=== PATIENT | male | born 1975 | race Caucasian/White ===

== ENCOUNTER 2017-07-16 00:40 | Emergency (ER) | payer BC ==
[~2017-07-16] VITALS: Ht 180.3 cm; Wt 81.6 kg
[~2017-07-16 00:40] MED LIST: CELEXA40 MG PO; DIVALPROEX SOD250 M1 PO; FETZIMA40 MG PO; KLONOPIN0.5 M1 PO; TRILEPTAL600 MG PO
[2017-07-16 02:04] LABS: HEMATOCRIT 50.2 % (38.0-50.0); MCH 29.9 PG (29.0-34.0); MCHC 33.5 G/DL (30.0-36.0); MCV 89.5 FL (86-99); MEAN PLAT.VOLUME 10.4 uM^3 (9.0-12.4); PLATELET COUNT 287 K/uL (156-360); RBC DIS.WIDTH-CV 13.1 % (11.8-14.6); RBC DIS.WIDTH-SD 42.8 % (39-53); RED BLOOD COUNT 5.61 M/uL (4.00-5.50); WHITE BLOOD COUNT 10.3 K/uL (4.1-10.2)
[2017-07-16 02:05] LABS: ADD MEDTOX COMMENT Y; AMPHETAMINE NEGATIVE (500 ng/mL); BARBITURATES NEGATIVE (200 ng/mL); BENZODIAZEPINES PRESUMPTIVE POSITIVE (150 ng/mL); COCAINE NEGATIVE (150 ng/mL); INTERNAL CONTROLS VALID? YES; METHADONE NEGATIVE (200 ng/mL); METHAMPHETAMINE NEGATIVE (500 ng/mL); OPIATES (MORPHINE) NEGATIVE (100 ng/mL); OXYCODONE NEGATIVE (100 ng/mL); PHENCYCLIDINE NEGATIVE (25 ng/mL); PROPOXYPHENE NEGATIVE (300 ng/mL); THC CANNABINOIDS NEGATIVE (50 ng/mL); TRICYCLIC ANTIDEPRESSANTS NEGATIVE (300 ng/mL)
[2017-07-16 02:17] LABS: CHLORIDE 106 mEq/L (99-109); SODIUM 144 mEq/L (136-147)
[2017-07-16 02:19] LABS: GLUCOSE 87 mg/dL (70-99)
[2017-07-16 02:20] LABS: ANION GAP 13 MEQ/L (2-14)
[2017-07-16 02:22] LABS: SERUM ETHYL ALCOHOL 124 mg/dL
[2017-07-16 02:23] LABS: GFR ESTIMATE (CALCULATED) > 59 mL/min/
[2017-07-16 02:24] LABS: UREA NITROGEN (BUN) 7 mg/dL (9-23)
[2017-07-16 03:31] LABS: BENZODIAZEPINES, URINE SCREEN POSITIVE (200 ng/mL)
[2017-07-16 03:38] VITALS: BP 125/85
== END 2017-07-16 03:39 | disposition home or self-care (01) ==
LOC: EME 00:40
DX: F32.9 Major depressive disorder, single episode, unspecified (principal); F17.200 Nicotine dependence, unspecified, uncomplicated
CPT/HCPCS: 80048; 84999; 85027; 90837; 99281; 99285; G0480